=== PATIENT | male | born 1945 | race Caucasian/White ===

== ENCOUNTER 2019-09-18 09:43 | Outpatient (CLI) | payer MEDICARE, OTHER, SELFPAY ==
--- NOTE | ~2019-09-18 | MR_ITS ---
EXAMINATION: MR lumbar spine wo con DATE: 09/18/2019 11:01 INDICATION: Lumbar spinal stenosis with neurogenic claudication. TECHNIQUE: Magnetic resonance imaging (MRI) of the lumbar spine was performed without intravenous con trast. Sequences included sagittal T2-weighted FSE, sagittal T2-weighted FS FSE, sagittal T1-weighted FSE, and axial T2-weighted FSE. COMPARISON: Lumbar spine MRI 10/20/2009 FINDINGS: There is 5 degrees dextrocurvature of lumbar spine. There is 4 mm anterolisthesis of L3 on L4 and L4 on L5. Vertebral body heights are normal. There is mildly decreased disc height at L3-L4 an d L4-L5. The distal spinal cord signal intensity is normal. The conus medullaris is at L1. The follow ing disc levels are specifically discussed: L1-L2: The disc does not extend beyond the endplate margin. There is mild bilateral facet joint osteo arthritis. There is no neural foraminal stenosis. There is no central canal stenosis. L2-L3: The disc is bulging. There is mild bilateral facet joint osteoarthritis. There is mild bilater al neural foraminal stenosis. There is mild central canal stenosis. L3-L4: The disc is bulging and has an annular fissure. There is severe bilateral facet joint osteoart hritis. There is hypertrophy of the ligamentum flavum. There is moderate bilateral neural foraminal s tenosis. There is moderate central canal stenosis. L4-L5: The disc is bulging and has an annular fissure. There is severe bilateral facet joint osteoart hritis. There is hypertrophy of the ligamentum flavum. There is moderate bilateral neural foraminal s tenosis. There is severe central canal stenosis. L5-S1: The disc is bulging. There is moderate bilateral facet joint osteoarthritis. There is mild mt ateral neural foraminal stenosis. There is mild central canal stenosis. IMPRESSION: 1. Severe central canal stenosis at L4-L5 with interval worsening. Otherwise stable moderate lumbar s pondylosis. Reviewed, dictated and finalized at location A. ARCH MECH[employer]IC IMPRESSION: 1. Severe central canal stenosis at L4-L5 with interval worsening. Otherwise st able moderate lumbar spondylosis.
== END 2019-09-18 09:44 | disposition home or self-care (01) ==
PROVIDERS: PCP Family Medicine; Visit Provider Physician Assistant
DX: M48.062 Spinal stenosis, lumbar region with neurogenic claudication (principal)
CPT/HCPCS: 72148

== ENCOUNTER 2019-09-24 14:23 | Emergency (ER) | payer MEDICARE, OTHER, SELFPAY ==
[2019-09-24 14:37] VITALS: BP 138/86; PULSE 72; RESP 16; TEMP 36.5; O2SAT 99
--- NOTE | 2019-09-24 14:49 | ED.DENTAL ---
HPI - Dental/Oral General Chief complaint: Dental/Oral Stated complaint: Swelling in mouth Time Seen by Provider: 09/24/19 14:49 Source: patient and RN notes reviewed Mode of arrival: ambulatory Limitations: no limitations History of Present Illness HPI Narrative: This is a 74 years old male presented office for evaluation of possible dental infection. He just recently had a molar teeth extraction about three weeks ago and follow up with his surgeon about two weeks ago with unremarkable finding. He was doing fine till two days ago; where he has trouble swallowing and pain when he eats. He took two dose of he left over antibiotic (clindamycin) that he had from his previous knees surgery so far. No other treatment. Related Data Home Medications Medication Instructions Recorded Confirmed pantoprazole 40 mg tablet,delayed 40 mg PO QAM 09/10/19 09/24/19 release Allergies Allergy/AdvReac Type Severity Reaction Status Date / Time Penicillins Allergy Unknown Skin Verified 09/24/19 14:25 Reaction Review of Systems Review of Systems: Narrative: CONSTITUTIONAL: Denies fever or feeling ill. ENT: Denies congestion or sore throat. Reports swollen glands feeling CARDIOVASCULAR: Denies chest pain RESPIRATORY: Denies dyspnea, wheezing GASTROINTESTINAL: Denies abdominal pain, nausea, vomiting GENITOURINARY: Denies urinary symptoms SKIN: Denies rash MUSCULOSKELETAL: Denies acute back pain NEUROLOGIC: Denies lightheaded PMFSH Past Medical History Medical History (Updated 09/24/19 @ 15:31 by HALEY Maria) Anemia Basal cell carcinoma (BCC) of skin of neck Essential (primary) hypertension Lumbar stenosis Mixed hyperlipidemia Other obesity Prediabetes Seborrheic keratosis Tendonitis of shoulder Social History Social History Smoking status: Former smoker Alcohol intake: current Comments At time of signature, I agree with nursing past medical, surgical, social and family history. There is no relevant family history pertinent to the presenting complaint. Exam Narrative: Exam Narrative: GENERAL: This is a well-nourished, well-developed patient, in no apparent distress. EYES: Sclera and conjunctivae normal ENT: External ears normal. Nose and lips normal. Airway patent. Right lower posterior gum where his molar tooth extracted appears swollen and there is tender around it. There is no facial swelling, cervical or submandibular lymphadenopathy. CARDIOVASCULAR: Regular rate and rhythm without murmurs, gallops, or rubs. RESPIRATORY: Clear to auscultation. Breath sounds equal bilaterally. No wheezes, rales, or rhonchi. GASTROINTESTINAL: Abdomen soft, non-tender, nondistended. Bowel sounds are active. No hepato-splenomegaly, or palpable masses. No guarding. SKIN: warm, intact with no suspicious lesions or rash, good texture and turgor. NEURO: awake, alert, and oriented to person, place and time. There were no obvious focal neurologic abnormalities. Course Vital Signs Vital signs: Vital Signs Temperature 97.7 F 09/24/19 14:37 Pulse Rate 72 09/24/19 14:37 Respiratory Rate 16 09/24/19 14:37 Blood Pressure 138/86 09/24/19 14:37 Pulse Oximetry 99 09/24/19 14:37 Temperature 97.7 F 09/24/19 14:37 Pulse Rate 72 09/24/19 14:37 Respiratory Rate 16 09/24/19 14:37 Blood Pressure 138/86 09/24/19 14:37 Pulse Oximetry 99 09/24/19 14:37 MDM - Dental/Oral MDM Narrative Medical decision making narrative: Discharge instructions reviewed with patient, as well as provided in writing per nursing staff. The instructions also include specific and strict return/GO TO THE ER as well as f/u information. All questions have been answered, and the patient deny any further questions with discharge and discharge plan. Differential Diagnosis Differential diagnosis: Likely gingival abscess, dental caries, toothache, dental abscess and fra
== END 2019-09-24 15:13 | disposition home or self-care (01) ==
PROVIDERS: Emergency Provider Nurse Practitioner
DX: G89.18 Other acute postprocedural pain (principal); Z87.891 Personal history of nicotine dependence; Z85.828 Personal history of other malignant neoplasm of skin; I10 Essential (primary) hypertension; E78.2 Mixed hyperlipidemia; R73.03 Prediabetes
CPT/HCPCS: 99213; G0463

== ENCOUNTER 2021-03-10 15:33 | Outpatient (CLI) | payer MEDICARE, SELFPAY ==
--- NOTE | ~2021-03-10 | CT_ITS ---
EXAMINATION: CT soft tissue neck chest w EXAM DATE: 03/10/2021 16:21 INDICATION: R22.0 - Localized swelling, mass and lump, head. TECHNIQUE: Spiral CT of the neck and chest was performed following intravenous injection of 75 mL Omn ipaque 350. Axial, coronal and sagittal images of the neck were reviewed. Axial, coronal and sagitt al images of the chest were reviewed. Coronal maximum intensity pixel images of chest reviewed. The dose-length product (DLP) for this examination was 1545.81 mGy-cm. The exposure was tailored accord ing to patient size (auto mA exposure control), and iterative reconstruction (ASIR) was used as addit ional dose reduction technique. There is no prior study for comparison. FINDINGS: NECK: There is an externally placed marker right anterolateral aspect of the neck. Submandibular glan d is deep to this. The thyroid gland is unremarkable. The submandibular and parotid glands are sym metric. No cervical lymphadenopathy. The airway is unremarkable. Parapharyngeal and pre-glottic fat planes are preserved. The opacified vasculature is patent. The orbits are unremarkable. Vis ualized sinuses and mastoid air cells are well aerated. There is cervical spondylosis. CHEST: Posterior sulci were excluded from the study. Right upper lobe thin spiculation measuring abou t 5 x 15 mm most likely postinfectious but 3-six-month follow-up chest CT recommended. There is moder ate emphysema. There are no pleural or pericardial effusions. Tracheobronchial tree is patent. T here is a prevascular lymph node which is upper limits of normal in size, probably reactive. There i s no pneumothorax. Heart normal in size. There is mild to moderate coronary arterial calcificatio n, arterial sclerosis. Upper abdomen is unremarkable. There is mild thoracic spondylosis without o steoblastic or osteolytic lesions identified. IMPRESSION: 1. No cervical mass. Palpable abnormality may be patient submandibular gland. 2. Right upper lobe spiculation most likely postinfectious but a follow-up 3-[address] is rec ommended 3. Moderate emphysema Reviewed, dictated and finalized at location B. IMPRESSION: 1. No cervical mass. Palpable abnormality may be patient submandibular gland. 2. Right upper lobe spiculation most likely postinfectious but a follow-up 3-[address] is recommended 3. Moderate emphysema
== END 2021-03-10 15:34 | disposition home or self-care (01) ==
PROVIDERS: PCP Family Medicine; Visit Provider Physician Assistant
DX: R22.0 Localized swelling, mass and lump, head (principal)
CPT/HCPCS: 70491; 71260; Q9967

== ENCOUNTER 2021-10-22 14:18 | Outpatient (CLI) | payer MEDICARE, SELFPAY ==
--- NOTE | ~2021-10-22 | CT_ITS ---
EXAMINATION: CT diagnostic chest wo con DATE: 10/22/2021 14:35 INDICATION: Solitary pulmonary nodule TECHNIQUE: Computed tomography (CT) of the chest was performed without intravenous contrast. The dose -length product (DLP) was 254.83 mGy-cm. Automated exposure control and iterative reconstruction tech [employer] were employed. COMPARISON: 03/10/2021 FINDINGS: There is moderate emphysema. A stable spiculated nodule is seen in the right lung apex, lik elliott scarring. No new pulmonary nodules are identified. The lungs are free of acute opacities. There i s no pleural effusion or pneumothorax. No pathologically enlarged thoracic lymph nodes are identified . The heart size is normal. Calcified coronary artery atherosclerosis is noted. 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 Cysts of the liver measure up to 4 cm. There is a T12 compression fr acture which is new since the comparison examination. Severe lower cervical spondylosis is noted. IMPRESSION: 1. Stable spiculated nodule of the right lung apex, consistent with scarring. 2. Moderate emphysema. 3. T12 compression fracture, new since the comparison examination. Reviewed, dictated and finalized at location B. CAID NURSE
--- NOTE | ~2021-10-22 | XR_ITS ---
EXAMINATION: XR lumbar spine min 4V EXAM DATE: 10/22/2021 14:43 INDICATION: M54.50 - Lspine Sx 1 Yr Ago. Fell In Dec, Still Pain TECHNIQUE: Lumber spine frontal, lateral, bilateral oblique projections. Coned down frontal and lat eral L5-S1 lumbar projections for interpretation. Comparison is made to prior examination from 10/16/19 10. FINDINGS: Lumbar fusion L3-L5, no hardware fracture. There is grade 1 anterolisthesis L3 on L4 and L4 on L5. Moderate lumbar arthropathy. L3, L4 and L5 laminectomies. Mild diffuse lumbar disc disease. T here is mild to moderate anterior wedging of T12, could be chronic but was not present in 2009. Mild diffuse loss of lumbar vertebral body heights, with some sclerosis at the L2 level which could be hea ling response, a subacute compression fracture. Sacrum, sacroiliac joints, sacral arcuate lines are i ntact. Mild aortic arterial sclerosis. Right inguinal surgical clips and right hip gamma nail. IMPRESSION: 1. L2 mild compression fracture, potentially could be subacute. 2. Mild to moderate T12 compression fracture, appears chronic but can't exclude acute component. 3. Intact L3-5 fusion. 4. Moderate facet arthropathy. Reviewed, dictated and finalized at location A. WICH ARTIST IMPRESSION: 1. L2 mild compression fracture, potentially could be subacute. 2. Mild to moderate T12 compression fracture, appears chronic but can't exclud e acute component. 3. Intact L3-5 fusion. 4. Moderate facet arthropathy.
== END 2021-10-22 14:19 | disposition home or self-care (01) ==
PROVIDERS: PCP Family Medicine; Visit Provider Physician Assistant
DX: R91.1 Solitary pulmonary nodule (principal); Z98.1 Arthrodesis status; J43.9 Emphysema, unspecified
CPT/HCPCS: 71250; 72110